=== PATIENT | male | born 1945 | race Caucasian/White ===

== ENCOUNTER → 2023-06-27 15:01 | Outpatient (REF) | payer MEDICARE, BC, SELFPAY | LOC: MRI 3T 15:01 | PROVIDERS: ATTENDING PHYSICIAN Psychiatry & Neurology Neurology; FAMILY PHYSICIAN Family Medicine | DX: R26.89 Other abnormalities of gait and mobility (principal) | CPT/HCPCS: 72146; 72148 ==

== ENCOUNTER → 2023-07-25 08:37 | Outpatient (REF) | payer MEDICARE, BC, SELFPAY | LOC: RAD 08:37 | PROVIDERS: ATTENDING PHYSICIAN Internal Medicine Cardiovascular Disease; FAMILY PHYSICIAN Family Medicine | DX: G60.9 Hereditary and idiopathic neuropathy, unspecified (principal); I73.9 Peripheral vascular disease, unspecified | CPT/HCPCS: 93922; 93925 ==

== ENCOUNTER 2023-09-09 09:01 | Outpatient (RCR) | payer MEDICARE, BC, SELFPAY | END 2023-09-09 23:59 | disposition home or self-care (01) | LOC: RPT 09:01 | PROVIDERS: ATTENDING PHYSICIAN Nurse Practitioner; FAMILY PHYSICIAN Family Medicine | DX: R26.89 Other abnormalities of gait and mobility (principal); Z91.81 History of falling; Z73.6 Limitation of activities due to disability | CPT/HCPCS: 97110; 97112; 97163; 97530 ==

== ENCOUNTER 2023-10-07 10:20 | Outpatient (RCR) | payer MEDICARE, BC, SELFPAY | END 2023-10-07 23:59 | disposition home or self-care (01) | LOC: RPT 10:20 | PROVIDERS: ATTENDING PHYSICIAN Nurse Practitioner; FAMILY PHYSICIAN Family Medicine | DX: R26.89 Other abnormalities of gait and mobility (principal) | CPT/HCPCS: 97110; 97112; 97116; 97530 ==

== ENCOUNTER → 2023-10-17 11:12 | Outpatient (REF) | payer MEDICARE, BC, SELFPAY ==
[2023-10-17 14:02] LABS: PSA, Total - Diagnostic 3.83 ng/ml (0.0-4.0)
== END ==
LOC: REG 11:12
PROVIDERS: ATTENDING PHYSICIAN Specialist; FAMILY PHYSICIAN Family Medicine
DX: R97.20 Elevated prostate specific antigen [PSA] (principal)
CPT/HCPCS: 36415; 84153

== ENCOUNTER → 2023-10-26 07:50 | Outpatient (REF) | payer MEDICARE, BC, SELFPAY ==
[2023-10-26 10:06] LABS: HDL Cholesterol 64 mg/dl; LDL Cholesterol, Calculated 37 mg/dl; Total Cholesterol 121 mg/dl (50-199); Triglyceride 102 mg/dl (10-149); Very Low Density Lipoprotein 20 mg/dl (0-30)
== END ==
LOC: REG 07:50
PROVIDERS: ATTENDING PHYSICIAN Internal Medicine Cardiovascular Disease; FAMILY PHYSICIAN Family Medicine
DX: E78.5 Hyperlipidemia, unspecified (principal); I73.9 Peripheral vascular disease, unspecified
CPT/HCPCS: 36415; 80061

== ENCOUNTER 2023-11-04 13:18 | Outpatient (RCR) | payer MEDICARE, BC, SELFPAY | END 2023-11-07 06:29 | disposition home or self-care (01) | LOC: RPT 13:18 | PROVIDERS: ATTENDING PHYSICIAN Nurse Practitioner; FAMILY PHYSICIAN Family Medicine | DX: R26.89 Other abnormalities of gait and mobility (principal) | CPT/HCPCS: 97110; 97112; 97116; 97530 ==

== ENCOUNTER → 2024-01-06 11:14 | Outpatient (REF) | payer MEDICARE, BC, SELFPAY | LOC: RAD 11:14 | PROVIDERS: ATTENDING PHYSICIAN Specialist; FAMILY PHYSICIAN Family Medicine | DX: N20.0 Calculus of kidney (principal) | CPT/HCPCS: 76775 ==

== ENCOUNTER 2024-02-02 11:00 | Outpatient (RCR) | payer MEDICARE, BC, SELFPAY | END 2024-02-02 23:59 | disposition home or self-care (01) | LOC: RST 11:00 | PROVIDERS: ATTENDING PHYSICIAN Otolaryngology; FAMILY PHYSICIAN Family Medicine | DX: R49.0 Dysphonia (principal); R13.12 Dysphagia, oropharyngeal phase | CPT/HCPCS: 92507; 92524 ==

== ENCOUNTER → 2024-02-09 08:17 | Outpatient (REF) | payer MEDICARE, BC, SELFPAY | LOC: RST 08:17 | PROVIDERS: ATTENDING PHYSICIAN Otolaryngology; FAMILY PHYSICIAN Family Medicine | DX: R49.0 Dysphonia (principal); R13.12 Dysphagia, oropharyngeal phase | CPT/HCPCS: 74230; 92611 ==

== ENCOUNTER 2024-03-06 12:54 | Outpatient (RCR) | payer MEDICARE, BC, SELFPAY | END 2024-03-06 23:59 | disposition home or self-care (01) | LOC: RST 12:54 | PROVIDERS: ATTENDING PHYSICIAN Otolaryngology; FAMILY PHYSICIAN Family Medicine | DX: R49.0 Dysphonia (principal); R13.12 Dysphagia, oropharyngeal phase | CPT/HCPCS: 92507; 92526; 92610; 96125; 97129; 97130 ==

== ENCOUNTER 2024-04-03 12:54 | Outpatient (RCR) | payer MEDICARE, BC, SELFPAY | END 2024-04-03 23:59 | disposition home or self-care (01) | LOC: RST 12:54 | PROVIDERS: ATTENDING PHYSICIAN Otolaryngology; FAMILY PHYSICIAN Family Medicine | DX: R49.0 Dysphonia (principal); R13.12 Dysphagia, oropharyngeal phase | CPT/HCPCS: 92507; 97129; 97130 ==

== ENCOUNTER 2024-05-10 12:53 | Outpatient (RCR) | payer MEDICARE, BC, SELFPAY | END 2024-05-11 11:37 | disposition home or self-care (01) | LOC: RST 12:53 | PROVIDERS: ATTENDING PHYSICIAN Otolaryngology; FAMILY PHYSICIAN Family Medicine | DX: R49.0 Dysphonia (principal); R13.12 Dysphagia, oropharyngeal phase; R13.10 Dysphagia, unspecified; R41.841 Cognitive communication deficit | CPT/HCPCS: 97129; 97130 ==

== ENCOUNTER → 2024-05-29 09:13 | Outpatient (REF) | payer MEDICARE, BC, SELFPAY | LOC: RAD 09:13 | PROVIDERS: ATTENDING PHYSICIAN Psychiatry & Neurology Neurology | DX: M54.2 Cervicalgia (principal) | CPT/HCPCS: 72050 ==

== ENCOUNTER 2024-06-04 15:17 | Emergency (ER) | payer MEDICARE, BC, SELFPAY ==
[2024-06-04 16:10] VITALS: BMI 23.7
[2024-06-04 17:08] VITALS: BP 136/69
--- NOTE | 2024-06-04 17:27 | ED.GENMED ---
History of Present Illness
General
Chief Complaint: Fall
Time Seen by Provider: 06/04/24 16:03
History of Present Illness
History of Present Illness:
78-year-old male presents to the emergency department for evaluation after a fall, he slipped and fell forward striking his face on the ground. He reports right hand and right knee pain as well. No LOC. Does not take blood thinners.
Past History
Past History
ED Past Medical History: HTN, Hypercholesterolemia, NIDDM, Other (left ureteral calculus, hypercalciuria, chronic low back pain, spontaneous pneumothorax, cognitive decline, neuropathy) and Other (Vertigo 2016)
ED Past Surgical History: Tonsilectomy and Other (laser surgery for glaucoma 2016, cataract extractions 2013)
Social History
Tobacco: Non-smoker
Alcohol: Occasional
Drug: None
Personal:
Living: with family
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
Family History
Family History: Other (reviewed and noncontributory)
Review of Systems
Review of Systems
Allergies reviewed?: Yes
All Other Systems: ROS reviewed and negative except as documented in HPI and ROS
Phy Exam
Physical Exam
Physical Exam:
GEN: Well appearing, NAD, WDWN
HEENT: No cephalohematoma. Diffuse swelling and ecchymosis to the nasal bridge with no palpable deformity, oral mucosa moist, no scleral icterus, no nasal congestion
Cardiac: Regular rate and rhythm, no murmurs
Lung: No respiratory distress, no tachypnea
MSK: Mild abrasions to the right anterior knee with no gross deformity. Right elbow and right wrist range of motion normal in all lemus with no deformities
Skin: Good color, no pallor or jaundice, no rashes
Neuro: AO x3; CN II-XII grossly intact. BUE strength 5/5 in all lemus, sensation intact and symmetric. BLE strength 5/5 in all lemus, sensation intact and symmetric
Psych: Calm, cooperative
Course
Orders/Labs/Results
Orders:
Orders
06/04/24 15:32
CT Head W/o Iv Contrast Urgent
Comment:
Reason For Exam: head trauma
06/04/24 16:26
CR Hand - Right Min 3 Views Urgent
Comment:
Reason For Exam: fall
CR Knee- Right 4 Or More View* Urgent
Comment:
Reason For Exam: fall
Vital Signs
Initial and Last Documented VS:
Initial Vital Signs
Temp Pulse Resp BP Pulse Ox
97.8 F 78 16 136/69 96
06/04/24 17:08 06/04/24 17:08 06/04/24 17:08 06/04/24 17:08 06/04/24 17:08
Last Documented Vital Signs
Temp Pulse Resp BP Pulse Ox
97.8 F 78 16 136/69 96
06/04/24 17:08 06/04/24 17:08 06/04/24 17:08 06/04/24 17:08 06/04/24 17:08
MDM/Problems Addressed
MDM/Problems Addressed:
Imaging grossly unremarkable with the exception of the mild nasal bone fracture. Discharged in stable condition
*Critical Care Note
Total Time (30-74mins, 75-104mins- exclusive of procedures): Not Applicable
ED Attending Note
-
Portions of this chart may have been created with voice recognition software.� Occasional wrong word or��sound alike� substitutions may have occurred due to the inherent limitations of voice recognition software.
Discharge Plan
Departure
Patient Disposition: Home (Routine Discharge)
Date of Disposition: 06/04/24
Time of Disposition: 17:27
Patient with high blood pressure during this ER visit?: No
Discharge Problem:
Closed head injury, Fracture of nasal bone, Contusion of right knee
Instructions: Head Injury in Adults (DC)
Prescriptions:
No Action
chlorthalidone 25 MG tablet
25 mg PO Q48H
potassium chloride [Klor-Con] 20 MEQ packet
20 meq PO DAILY
ascorbic acid (vitamin C) [Vitamin C] 500 MG tablet
1,000 mg PO Q48H
cholecalciferol (vitamin D3) [Vitamin D3] 400 UNITS tablet
2,000 units PO DAILY
potassium citrate 5 MEQ tablet extended release
5 meq PO BID
One Daily For Men 50 Plus Adv 1 EACH tablet
1 tab PO DAILY
Lumigan 1 DROP drops
1 drp BOTH EYES QPM
Vicks Nyquil Nighttime Relief 236 ML liquid
1 dose PO PRN PRN (Reason: runny nose)
Referrals:
Darius Cope, DO [Family Provider] -
Interventions
Interventions:
*Risk Screen - Suicide Last Done: 06/04/24 16:10
*General Assessment Last Done: 06/04/24 16:10
*Neglect/Abuse Screening Last Done: 06/04/24 16:10
ED- Fall Risk Assessment Last Done: 06/04/24 16:07
*ED COVID-19 Vaccine History Last Done: 06/04/24 16:10
*Nursing Disposition Last Done: 06/04/24 17:36
ED-Musculoskeletal Assessment Last Done: 06/04/24 16:10
ED- Neurological Assessment Last Done: 06/04/24 16:10
ED-Skin Assessment Last Done: 06/04/24 16:10
Discharge Date and Time
Discharge Date/Time: 06/04/24 17:44
Print Language: TRINIDADIAN
== END 2024-06-04 17:44 | disposition home or self-care (01) ==
LOC: EMR 15:17
PROVIDERS: EMERGENCY PHYSICIAN Emergency Medicine; FAMILY PHYSICIAN Family Medicine
DX: S09.90XA Unspecified injury of head, initial encounter (principal); S02.2XXA Fracture of nasal bones, initial encounter for closed fracture; S80.01XA Contusion of right knee, initial encounter; W01.0XXA Fall on same level from slipping, tripping and stumbling without subsequent striking against object, initial encounter
CPT/HCPCS: 99285; 70450; 73130; 73564

== ENCOUNTER 2024-06-14 09:12 | Emergency (ER) | payer MEDICARE, BC, SELFPAY ==
[2024-06-14 09:12] VITALS: BMI 22.8
[2024-06-14 09:22] VITALS: BP 134/81
--- NOTE | 2024-06-14 09:53 | ED.GENMED ---
History of Present Illness
General
Chief Complaint: Fall
Source: patient and spouse
Exam Limitations: none
Time Seen by Provider: 06/14/24 09:44
Nursing documentation reviewed up to this point in time: agreed with
History of Present Illness
History of Present Illness:
Patient presents to ED for evaluation after tripping over a step and falling forward, as he was about to enter his house, onto concrete surface. Patient has cut noted over the bridge of his nose as well as his upper lip. Denies loss of
consciousness. Denies neck pain. Denied blurred vision. Denies loss of sensation or weakness. Denies any other injuries from the fall. Patient does not take any blood thinning medications. Of note, patient has gone through physical therapy as
an outpatient, secondary to gait abnormality. In addition, patient was seen in ED 10 days ago after another fall. Denies recent illness. Denies recent change in medications or diet.
Past History
Past History
ED Past Medical History: HTN, Hypercholesterolemia, NIDDM, Other (left ureteral calculus, hypercalciuria, chronic low back pain, spontaneous pneumothorax, cognitive decline, neuropathy) and Other (Vertigo 2016)
ED Past Surgical History: Tonsilectomy and Other (laser surgery for glaucoma 2016, cataract extractions 2013)
Social History
Tobacco: Non-smoker
Alcohol: Occasional
Drug: None
Personal:
Living: with family
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
Family History
Family History: Other (reviewed and noncontributory)
Review of Systems
Review of Systems
Allergies reviewed?: Yes
All Other Systems: ROS reviewed and negative except as documented in HPI and ROS
Constitutional: Reports no symptoms
Respiratory: Reports no symptoms; Denies trouble breathing
Cardiac: Reports no symptoms; Denies chest pain, palpitations or syncope
ABD/GI: Reports no symptoms
Musculoskeletal: Reports other (nasal pain/swelling)
Skin: Reports other (lip laceration/swelling)
Neurological: Reports no symptoms; Denies headache, weakness or numbness
Phy Exam
Physical Exam
Physical Exam:
Physical Exam
General: no apparent distress, not acutely ill. afebrile
Head: eomi. resolving ecchymosis noted over right cheek. superficial abrasion noted over bridge of nose, with minimal bleeding
Neck: supple. normal range of motion.
Heart: s1/s2 regular rate and rhythm, no murmur.
Lungs: no acute respiratory distress. clear bilaterally. chest wall nontender to palpation
Abdomen: normal bowel sounds. not tender.
Neuro: alert and oriented x 3. no focal neurological deficits
Skin: upper lip swelling noted with an approx 2cm laceration, not involving erasto border. teeth intact
Psychiatric: well kept. interactive and cooperative
Extremities: no edema. no calf tenderness.
Course
Orders/Labs/Results
Orders:
Orders
06/14/24 09:52
CT Facial Bones W/o Iv Contras Urgent
Comment:
Reason For Exam: trauma
CT Head W/o Iv Contrast Urgent
Comment:
Reason For Exam: trauma
Tetanus/Diphth/Acelpertussis [Adacel] 0.5 ml IM .ONCE ONE
Physical Therapy Consult [Pt Eval And Treat] Urgent
Activity Level: Ambulate
06/14/24 10:27
Basic Metabolic Panel Urgent
Complete Blood Count/No Diff Urgent
Abnormal Lab Results
06/14/24
10:27
Glucose 110 H mg/dl
(70-99)
06/14/24 10:27
06/14/24 10:27
Vital Signs
Initial and Last Documented VS:
Initial Vital Signs
Temp Pulse Resp BP Pulse Ox
98.3 F 74 12 134/81 98
06/14/24 09:22 06/14/24 09:22 06/14/24 09:22 06/14/24 09:22 06/14/24 09:22
Last Documented Vital Signs
Temp Pulse Resp BP Pulse Ox
98.3 F 74 18 134/81 98
06/14/24 12:00 06/14/24 09:22 06/14/24 10:00 06/14/24 09:22 06/14/24 09:22
Procedures
Laceration Closure
Upper Lip:
Status of Wound: clean
Size of Wound in cm: 2
Description of Wound Edges: sharp
Preparation: cleaned with saline
Anesthesia: 1% Lidocaine with epi
Revision/Debridement: routine- no revision
Type of Closure: single layer closure
Skin Closure Material: 5-0 vicryl
Number of sutures: 2
MDM/Problems Addressed
MDM/Problems Addressed:
CT report reviewed and discussed with patient and family.
Upper lip laceration, on inner aspect, not involving vermilion border, well-approximated with placement of two 5.0 Vicryl sutures. Advised suture removal with PCP, if sutures remain after 10 days.
Patient evaluated by physical therapy, and recommendation provided, including continual outpatient evaluation and treatment.
Patient otherwise is hemodynamically stable and neurologically intact, at time of discharge.
*Critical Care Note
Total Time (30-74mins, 75-104mins- exclusive of procedures): Not Applicable
ED Attending Note
-
Portions of this chart may have been created with voice recognition software.� Occasional wrong word or��sound alike� substitutions may have occurred due to the inherent limitations of voice recognition software.
Discharge Plan
Departure
Patient Disposition: Home (Routine Discharge)
Date of Disposition: 06/14/24
Time of Disposition: 13:26
Patient with high blood pressure during this ER visit?: Yes
Discharge Problem:
Fracture of nasal bone, Laceration of lip
Instructions: Laceration Repair With Stitches (DC), Preventing falls in adults, Nose Fracture ED
Prescriptions:
No Action
chlorthalidone 25 MG tablet
25 mg PO Q48H
potassium chloride [Klor-Con] 20 MEQ packet
20 meq PO DAILY
ascorbic acid (vitamin C) [Vitamin C] 500 MG tablet
1,000 mg PO Q48H
cholecalciferol (vitamin D3) [Vitamin D3] 400 UNITS tablet
2,000 units PO DAILY
potassium citrate 5 MEQ tablet extended release
5 meq PO BID
One Daily For Men 50 Plus Adv 1 EACH tablet
1 tab PO DAILY
Lumigan 1 DROP drops
1 drp BOTH EYES QPM
Vicks Nyquil Nighttime Relief 236 ML liquid
1 dose PO PRN PRN (Reason: runny nose)
Referrals:
Darius Cope, [Family Provider] -
French Swain MD [Active] -
Activity Restrictions/Additional Instructions:
As discussed, please follow-up with your primary care physician and/or referred to ENT physician for further evaluation and treatment. Please contact outpatient physical therapy for continual evaluation and treatment. There are 2 absorbable
sutures placed for upper lip laceration. If sutures remain in place after 10 days, they must be removed by your primary care physician.
Interventions
Interventions:
*Risk Screen - Suicide Last Done: 06/14/24 10:36
*General Assessment Last Done: 06/14/24 10:08
*Neglect/Abuse Screening Last Done: 06/14/24 10:08
*ED- Fall Risk Assessment Last Done: 06/14/24 10:07
*ED COVID-19 Vaccine History Last Done: 06/14/24 10:07
*Nursing Disposition Last Done: 06/14/24 14:04
ED-Musculoskeletal Assessment Last Done: 06/14/24 10:33
ED- Neurological Assessment Last Done: 06/14/24 10:32
ED-Skin Assessment Last Done: 06/14/24 10:34
Discharge Date and Time
Discharge Date/Time: 06/14/24 14:05
Print Language: TURKISH
[2024-06-14] MEDS: ADACEL 0.5 ML IM (10:28)
[2024-06-14 10:48] LABS: Hematocrit 44.9 % (39.0-52.0); Mean Corp Hgb Conc. 33.4 g/dL (33.0-37.0); Mean Corpuscular Hgb 29.9 pg (27.0-31.0); Mean Corpuscular Volume 89.4 fL (80.0-94.0); Mean Platelet Volume 9.8 fL (7.4-10.4); Platelet Count 178 10^3/uL (130-400); Red Blood Cell Count 5.02 10^6/uL (4.70-6.10); Red Cell Dist. Width 12.5 % (11.5-14.5); White Blood Cell Count 7.6 10^3/uL (4.8-10.8)
[2024-06-14 11:07] LABS: Blood Urea Nitrogen 17 mg/dl (9-20); Calcium 9.4 mg/dl (8.4-10.2); Carbon Dioxide 30 mmol/L (22-30); Chloride 100 mmol/L (98-107); Estimated Creatinine Clearance 93 ml/min; Glucose 110 mg/dl (70-99); Potassium 4.6 mmol/L (3.5-5.1); Sodium 137 mmol/L (135-145); eGFR > 60.00
== END 2024-06-14 14:05 | disposition home or self-care (01) ==
LOC: EMR 09:12
PROVIDERS: EMERGENCY PHYSICIAN Emergency Medicine; FAMILY PHYSICIAN Family Medicine
DX: S02.2XXA Fracture of nasal bones, initial encounter for closed fracture (principal); S01.511A Laceration without foreign body of lip, initial encounter; W10.9XXA Fall (on) (from) unspecified stairs and steps, initial encounter; Z23 Encounter for immunization; I10 Essential (primary) hypertension; E78.00 Pure hypercholesterolemia, unspecified; E11.9 Type 2 diabetes mellitus without complications; E83.52 Hypercalcemia
CPT/HCPCS: 99284; 12011; 90471; 70450; 70486; 80048; 85027; 90715

== ENCOUNTER → 2024-06-15 15:49 | Outpatient (REF) | payer MEDICARE, BC, SELFPAY | LOC: HWRAD 15:49 | PROVIDERS: ATTENDING PHYSICIAN Family Medicine | DX: M25.532 Pain in left wrist (principal); S60.222D Contusion of left hand, subsequent encounter | CPT/HCPCS: 73110; 73130 ==

== ENCOUNTER 2024-07-03 06:11 | Outpatient (RCR) | payer MEDICARE, BC, SELFPAY | END 2024-07-03 23:59 | disposition home or self-care (01) | LOC: RPT 06:11 | PROVIDERS: ATTENDING PHYSICIAN Family Medicine | DX: R26.81 Unsteadiness on feet (principal); R26.89 Other abnormalities of gait and mobility; Z73.6 Limitation of activities due to disability; M62.81 Muscle weakness (generalized); G62.9 Polyneuropathy, unspecified; R29.6 Repeated falls | CPT/HCPCS: 97110; 97162 ==

== ENCOUNTER 2024-08-07 10:58 | Outpatient (RCR) | payer MEDICARE, BC, SELFPAY | END 2024-08-07 23:59 | disposition home or self-care (01) | LOC: RPT 10:58 | PROVIDERS: ATTENDING PHYSICIAN Family Medicine | DX: R26.81 Unsteadiness on feet (principal); R26.89 Other abnormalities of gait and mobility; Z73.6 Limitation of activities due to disability; M62.81 Muscle weakness (generalized); G62.9 Polyneuropathy, unspecified; R29.6 Repeated falls | CPT/HCPCS: 97110; 97112 ==

== ENCOUNTER 2024-08-21 10:00 | Outpatient (RCR) | payer MEDICARE, BC, SELFPAY | END 2024-08-21 11:50 | disposition home or self-care (01) | LOC: RPT 10:00 | PROVIDERS: ATTENDING PHYSICIAN Family Medicine | DX: R26.81 Unsteadiness on feet (principal); R26.89 Other abnormalities of gait and mobility; Z73.6 Limitation of activities due to disability; M62.81 Muscle weakness (generalized); G62.9 Polyneuropathy, unspecified; R29.6 Repeated falls | CPT/HCPCS: 97110; 97112 ==

== ENCOUNTER 2024-08-28 07:43 | Outpatient (RCR) | payer MEDICARE, BC, SELFPAY | END 2024-08-28 23:59 | disposition home or self-care (01) | LOC: RPT 07:43 | PROVIDERS: ATTENDING PHYSICIAN Nurse Practitioner Family; FAMILY PHYSICIAN Family Medicine | DX: H81.10 Benign paroxysmal vertigo, unspecified ear (principal); Z73.6 Limitation of activities due to disability | CPT/HCPCS: 97162 ==

== ENCOUNTER → 2024-10-02 10:11 | Outpatient (REF) | payer MEDICARE, BC, SELFPAY ==
[2024-10-02 14:05] LABS: Free T4 1.11 ng/dl (0.78-2.19)
[2024-10-02 14:19] LABS: TSH 1.24 uIU/ml (0.47-4.68)
== END ==
LOC: REG 10:11
PROVIDERS: ATTENDING PHYSICIAN Internal Medicine Endocrinology, Diabetes & Metabolism
DX: E04.2 Nontoxic multinodular goiter (principal)
CPT/HCPCS: 36415; 84439; 84443

== ENCOUNTER → 2024-11-05 08:18 | Outpatient (REF) | payer MEDICARE, BC, SELFPAY | LOC: RAD 08:18 | PROVIDERS: ATTENDING PHYSICIAN Internal Medicine Endocrinology, Diabetes & Metabolism; FAMILY PHYSICIAN Family Medicine | DX: E04.2 Nontoxic multinodular goiter (principal) | CPT/HCPCS: 76536 ==

== ENCOUNTER → 2025-01-25 07:09 | Outpatient (REF) | payer MEDICARE, BC, SELFPAY ==
[2025-01-25 08:46] LABS: HDL Cholesterol 62 mg/dl; LDL Cholesterol, Calculated 45 mg/dl; Very Low Density Lipoprotein 24 mg/dl (0-30)
== END ==
LOC: REG 07:09
PROVIDERS: ATTENDING PHYSICIAN Internal Medicine Cardiovascular Disease; FAMILY PHYSICIAN Family Medicine
DX: E78.5 Hyperlipidemia, unspecified (principal)
CPT/HCPCS: 36415; 80061

== ENCOUNTER 2025-02-05 06:35 | Outpatient (RCR) | payer MEDICARE, BC, SELFPAY | END 2025-02-05 23:59 | disposition home or self-care (01) | LOC: RPT 06:35 | PROVIDERS: ATTENDING PHYSICIAN Family Medicine | DX: R26.89 Other abnormalities of gait and mobility (principal); R26.81 Unsteadiness on feet; M62.81 Muscle weakness (generalized); Z73.6 Limitation of activities due to disability; E11.42 Type 2 diabetes mellitus with diabetic polyneuropathy | CPT/HCPCS: 97110; 97162 ==

== ENCOUNTER → 2025-02-14 07:52 | Outpatient (REF) | payer MEDICARE, BC, SELFPAY | LOC: RCS 07:52 | PROVIDERS: ATTENDING PHYSICIAN Internal Medicine Cardiovascular Disease; FAMILY PHYSICIAN Family Medicine | DX: I10 Essential (primary) hypertension (principal) | CPT/HCPCS: 93306 ==

== ENCOUNTER 2025-03-05 10:17 | Outpatient (RCR) | payer MEDICARE, BC, SELFPAY | END 2025-03-06 06:22 | disposition home or self-care (01) | LOC: RPT 10:17 | PROVIDERS: ATTENDING PHYSICIAN Family Medicine | DX: R26.89 Other abnormalities of gait and mobility (principal); R26.81 Unsteadiness on feet; M62.81 Muscle weakness (generalized); Z73.6 Limitation of activities due to disability; E11.42 Type 2 diabetes mellitus with diabetic polyneuropathy | CPT/HCPCS: 97110; 97112 ==

== ENCOUNTER → 2025-03-30 08:07 | Outpatient (REF) | payer MEDICARE, BC, SELFPAY ==
[2025-03-30 12:52] LABS: PSA, Total - Diagnostic 4.42 ng/ml (0.0-4.0)
== END ==
LOC: REG 08:07
PROVIDERS: ATTENDING PHYSICIAN Specialist; FAMILY PHYSICIAN Family Medicine
DX: R97.20 Elevated prostate specific antigen [PSA] (principal)
CPT/HCPCS: 36415; 84153